=== PATIENT | female | born 1965 | race Caucasian/White ===

== ENCOUNTER → 2016-07-03 | Outpatient (CLI) | payer BC ==
--- NOTE | 2016-07-06 07:34 | XR ---
EXAMINATION TYPE: XR cervical spine comp DATE OF EXAM: 07/03/2016 4:45 PM CLINICAL HISTORY: pain COMPARISON: NONE TECHNIQUE: Frontal, lateral, oblique, swimmers, and open mouth view of the cervical spine are obtaine d. FINDINGS: The cervical spine is visualized in its entirety from C1 thru the top of T1 level. It is s atisfactory in alignment without evidence of acute fracture or dislocation. The pre-vertebral soft t issue appears within normal limits. There is moderate degenerative disc space narrowing at C6-7 with the ventral and dorsal spondylosis. Mild bilateral foraminal encroachment is noted at this level. The C1-C2 articulation is unremarkable on the open mouth view. IMPRESSION: No acute fracture or dislocation is seen in the cervical spine.ICD 10 NO FRACTURE, INITI AL EVALUATION
== END | disposition home or self-care (01) ==
LOC: RADXRYALE 16:31
PROVIDERS: ATTEND Physician Assistant Medical
DX: M54.12 Radiculopathy, cervical region (principal)
CPT/HCPCS: 72050

== ENCOUNTER → 2020-04-02 | Outpatient (CLI) | payer BC ==
--- NOTE | 2020-04-03 07:12 | XR ---
Chest x-ray and left RIBS HISTORY: Chest pain, localized swelling Frontal view of the chest and 4 views of the left ribs No comparisons There is a spinal curvature noted centered at the upper lumbar spine. Bone mineralization is maintain ed. No evident displaced rib fracture. Mild prominence of the ascending aorta may be at least in part due to technique. There is no evident pneumothorax or pleural effusion. No airspace disease. Heart s ize is normal. IMPRESSION: No acute abnormality. Prominence of the ascending aorta is noted as described.
== END | disposition home or self-care (01) ==
LOC: RADXRYALE 16:14
PROVIDERS: ATTEND Family Medicine
DX: R07.89 Other chest pain (principal); R22.2 Localized swelling, mass and lump, trunk

== ENCOUNTER → 2020-08-28 | Day surgery (SDC) | payer BC ==
[2020-08-26 10:21] VITALS: BMI 21.7
[~2020-08-28] MED LIST: DEXAMETHASONE SOD PHOSPHATE 10 MG/ML 1 ML VIAL ONE; DEXAMETHASONE SOD PHOSPHATE 4 MG/ML 1 ML VIAL IV PRN; FAMOTIDINE 20 MG/2 ML VIAL IV PRN; GLYCOPYRROLATE 0.2 MG/ML 2 ML VIAL ONE; LACTATED RINGERS 1,000 ML IV ONE; LIDOCAINE 1% INJ 10MG/ML (20 ML MDV) ONE; MIDAZOLAM 2 MG/2 ML VIAL ONE; NEOSTIGMINE 1 MG/ML 10 ML VIAL ONE; ONDANSETRON 4 MG/2 ML VIAL IVP PRN; PROPOFOL 10 MG/ML 20 ML VIAL IV ONE; Pre Op ABX Message 1 EACH MISC MISCELLANE ONE; ROCURONIUM 10 MG/ML (5 ML VIAL) IV ONE; SUCCINYLCHOLINE CHLORIDE 100 MG/5 ML SYR IV ONE; fentaNYL (PF) 50 MCG/ML 2 ML AMP ONE
--- NOTE | 2020-08-28 09:53 | P.OP ---
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 Postoperative Diagnosis: Same Procedure(s) Performed: Microlaryngoscopy with biopsy bilateral true vocal cords Anesthesia: LILIA Surgeon: Juanjo Gentile Estimated Blood Loss (ml): 1 Pathology: other (Bilateral true vocal biopsies) Condition: stable Disposition: PACU Indications for Procedure: This is a 55-year-old white female with over 2 months of chronic hoarseness a long history of smoking with notable bilateral tubal leukoplakia flexible laryngoscopy Operative Findings: Bilateral mild mid true vocal cord leukoplakia with diffuse gross pachydermia bilateral vocal cords Description of Procedure: The patient was brought in the operative suite and placed in a supine position. The patient underwent induction of general anesthesia with oral endotracheal intubation without difficulty. The patient was prepped and draped in usual aseptic fashion. Tooth guard was placed and direct laryngoscopy was performed with systematic evaluation of the base of tongue vallecula both piriform sinuses post cricoid area and endolarynx. With the larynx in good visualization the laryngoscope was placed in suspension and the Zeiss microscope brought into position. The vocal cords were well visualized. There was minimal movement true vocal cord leukoplakia bilaterally which was excised with cup forceps and microdebrider dissection technique leaving the lamina propria intact. No further leukoplakia was noted. The stasis was gained spontaneously. The patient was suctioned in the larynx. Laryngoscope and tooth guard were removed The patient was allowed to emerge from general anesthesia having tolerated well was extubated in the operative suite and transferred to postop recovery area in satisfactory condition.
[2020-08-28 10:15] VITALS: TEMP 97.8
[2020-08-28 10:36] VITALS: RESP 16
[2020-08-28 11:11] VITALS: BP 134/78; PULSE 70
== END | disposition home or self-care (01) ==
LOC: OR 08:00
PROVIDERS: ATTEND Otolaryngology
DX: J38.3 Other diseases of vocal cords (principal); I10 Essential (primary) hypertension; Z96.60 Presence of unspecified orthopedic joint implant; F17.200 Nicotine dependence, unspecified, uncomplicated; Z79.899 Other long term (current) drug therapy; Z88.0 Allergy status to penicillin
CPT/HCPCS: 88305; 31536; J2250; J1100 ×2; J2710; J2405; J2001; J3010; J0330; J2704

== ENCOUNTER → 2021-05-15 | Outpatient (CLI) | payer BC ==
--- NOTE | 2021-05-19 12:22 | MM ---
Reason for exam: screening (asymptomatic). Last mammogram was performed 5 years and 9 months ago. History: Patient is nulliparous. Physical Findings: A clinical breast exam by your physician is recommended on an annual basis and results should be correlated with mammographic findings. MG Screening Mammo w CAD Bilateral CC and MLO view(s) were taken. Prior study comparison: August 05, 2015, bilateral MG screening mammo w CAD. December 15, 2013, bilateral MG screening mammo w CAD. The breast tissue is heterogeneously dense. This may lower the sensitivity of mammography. There are benign appearing round calcifications in the right breast. There is no discrete abnormality. ASSESSMENT: Benign, BI-RAD 2 RECOMMENDATION: Routine screening mammogram of both breasts in 1 year.
== END | disposition home or self-care (01) ==
LOC: RADMAMWWP 11:35
PROVIDERS: ATTEND Family Medicine
DX: Z12.31 Encounter for screening mammogram for malignant neoplasm of breast (principal)
CPT/HCPCS: 77067

== ENCOUNTER → 2022-08-05 | Outpatient (CLI) | payer BC ==
--- NOTE | 2022-08-05 08:47 | MM ---
Reason for Exam: Clinical finding. Last mammogram was performed 1 year(s) and 3 month(s) ago. Patient History: Menarche at age 14. Patient has no children. Postmenopausal. Risk Values: Svitlana 5 year model risk: 1.3%. NCI Lifetime model risk: 9.1%. Tissue Density: The breast tissue is heterogeneously dense. This may lower the sensitivity of mammography. Findings: Analyzed By CAD. Benign-appearing bilateral axillary lymph nodes are present. No suspicious new mass or worrisome group of microcalcification in either breast. Overall Assessment: Incomplete: need additional imaging evaluation, BI-RAD 0 Management: Diagnostic Breast Ultrasound of the right breast. Targeted ultrasound evaluation due to localized pain. Electronically signed and approved by: Ethan Stephen M.D.
--- NOTE | 2022-08-05 09:29 | USB ---
Reason for Exam: Clinical finding. Patient History: Menarche at age 14. Patient has no children. Postmenopausal. Risk Values: Svitlana 5 year model risk: 1.3%. NCI Lifetime model risk: 9.1%. Technique: Method: Targeted. Prior Study Comparison: 12/15/2013 Bilateral Screening Mammogram, [facility]. 08/05/2015 Bilateral Screening Mammogram, [facility]. 05/15/2021 Bilateral Screening Mammogram, [facility]. Findings: The upper outer quadrant of the right breast, the axilla of the right breast and the retroareolar of the right breast were scanned. Targeted ultrasound shows no worrisome solid or cystic masses or fluid collection. Overall Assessment: Negative, BI-RAD 1 Management: Screening Mammogram of both breasts in 1 year. Return to routine follow-up. Manage patient's symptoms clinically. Results were given to the patient verbally at the time of exam. Electronically signed and approved by: Ethan Stephen M.D.
== END | disposition home or self-care (01) ==
LOC: RADMAMWWP 08:19
PROVIDERS: ATTEND Family Medicine
DX: N63.10 Unspecified lump in the right breast, unspecified quadrant (principal); Z78.0 Asymptomatic menopausal state
CPT/HCPCS: 77062; 77066

== ENCOUNTER → 2023-10-11 | Outpatient (CLI) | payer BC ==
--- NOTE | 2023-10-12 09:10 | MM ---
Reason for Exam: Screening (asymptomatic). Last mammogram was performed 1 year(s) and 2 month(s) ago. Patient History: Menarche at age 14. Patient has no children. Postmenopausal. Risk Values: Svitlana 5 year model risk: 1.4%. NCI Lifetime model risk: 8.9%. Prior Study Comparison: 08/05/2015 Bilateral Screening Mammogram, [facility]. 05/15/2021 Bilateral Screening Mammogram, [facility]. 08/05/2022 Bilateral MG 3D diag mammo w/cad COREY, [facility]. Tissue Density: The breasts are heterogeneously dense, which may obscure small masses. Findings: Analyzed By CAD. There is no suspicious group of microcalcifications or new suspicious mass in either breast. Overall Assessment: Benign, BI-RAD 2 Management: Screening Mammogram of both breasts in 1 year. . Patient should continue monthly self-breast exams. A clinical breast exam by your physician is recommended on an annual basis. This exam should not preclude additional follow-up of suspicious palpable abnormalities. Note on Svitlana scores and lifetime risk: 1. A Svitlana score greater than 3% is considered moderate risk. If this is the case, consider specialist referral to assess eligibility for a risk reducing agent. 2. If overall lifetime risk for the development of breast cancer is 20% or higher, the patient may qualify for future screening with alternating mammogram and breast MRI. Electronically signed and approved by: Rosendo Clemente M.D. Radiologis
== END | disposition home or self-care (01) ==
LOC: RADMAMWWP 10:35
PROVIDERS: ATTEND Family Medicine
DX: Z12.31 Encounter for screening mammogram for malignant neoplasm of breast (principal); Z78.0 Asymptomatic menopausal state
CPT/HCPCS: 77063; 77067

== ENCOUNTER 2024-06-18 12:12 | Emergency (ER) | payer BC ==
--- NOTE | 2024-06-18 12:28 | ED ---
Upper Extremity HPI - General Chief Complaint: Extremity Injury, Upper Stated Complaint: right arm pain Time Seen by Provider: 06/18/24 12:19 Source: patient Mode of arrival: ambulatory Limitations: no limitations - History of Present Illness Initial Comments: This patient is a 58-year-old woman who presents to have evaluation of left wrist injury. The patient states that she had slipped and fallen while walking on the snow. She landed on outstretched hand. She noticed pain and swelling. She has not had previous injury or surgery. Patient is right-handed. MD Complaint: Injury to:: left, wrist Onset/Timin -: hour(s) Other Extremity Injury: Wrist: Right Other Injuries: none Handedness: right Place: outdoors Improves With: medication Worsens With: movement of extremity Context: fall Associated Symptoms: denies other symptoms Treatments Prior to Arrival: NSAIDS - Related Data Home Medications Medication Instructions Recorded Confirmed lisinopriL [Prinivil] 20 mg PO BID 08/26/20 06/27/24 Acetaminophen-Codeine 300-30mg 1 - 2 tab PO Q6H PRN 06/22/24 06/27/24 [Tylenol w/codeine #3] Ascorbic Acid [Vitamin C] 500 mg PO DAILY 06/22/24 06/27/24 Atorvastatin [Lipitor] 10 mg PO HS 06/22/24 06/27/24 Cholecalciferol [Vitamin D3 (25 50 mcg PO DAILY 06/22/24 06/27/24 Mcg = 1000 Iu)] Escitalopram [Lexapro] 10 mg PO QAM 06/22/24 06/27/24 [place]-3/Dha/Epa/Fish Oil [Fish Oil 1 each PO DAILY 06/22/24 06/27/24 1,000 mg Softgel] hydroCHLOROthiazide 25 mg PO QAM 06/22/24 06/27/24 Previous Rx's Medication Instructions Recorded Acetaminophen-Codeine 300-30mg 1 tab PO Q8H PRN #21 tablet 06/27/24 [Tylenol w/codeine #3] Allergies Allergy/AdvReac Type Severity Reaction Status Date / Time Penicillins Allergy Rash/Hives Verified 06/27/24 08:50 morphine AdvReac Nausea & Verified 06/27/24 08:50 Vomiting Review of Systems ROS Statement: Those systems with pertinent positive or pertinent negative responses have been documented in the HPI. ROS Other: All systems not noted in ROS Statement are negative. Constitutional: Denies: weakness Cardiovascular: Denies: syncope Gastrointestinal: Denies: abdominal pain Musculoskeletal: Reports: as per HPI, joint swelling, arthralgia. Denies: back pain Skin: Denies: lesions Neurological: Denies: headache Past Medical History Past Medical History: Hypertension Additional Past Medical History / Comment(s): Minor heart murmur. "Was told I have liver/kidney problems in Mar 2020, but has had no follow up on it." "Found a tick on my head 2 weeks ago, on Doxycycline foir it." History of Any Multi-Drug Resistant Organisms: None Reported Past Surgical History: Orthopedic Surgery Additional Past Surgical History / Comment(s): Right knee surgery. Past Anesthesia/Blood Transfusion Reactions: No Reported Reaction Past Psychological History: Anxiety Smoking Status: Current every day smoker Past Alcohol Use History: None Reported Past Drug Use History: None Reported - Past Family History Father Family Medical History: Cancer, Deep Vein Thrombosis (DVT) Additional Family Medical History / Comment(s): Throat cancer. Mother Family Medical History: Cancer Additional Family Medical History / Comment(s): Lung cancer. General Exam Limitations: no limitations General appearance: alert, in no apparent distress Head exam: Present: atraumatic, normocephalic Eye exam: Present: normal appearance Neck exam: Present: normal inspection, full ROM. Absent: tenderness Respiratory exam: Absent: chest wall tenderness Cardiovascular Exam: Present: other (Radial pulse is strong and symmetric. Normal capillary refill.) Extremities exam: Present: tenderness, normal capillary refill. Absent: full ROM Left Shoulder Exam: Present: normal inspection, full ROM. Absent: tenderness, swelling Upper Arm exam: Present: normal inspection, full ROM. Absent: tenderness, swelling Elbow exam: Present: normal inspection, full ROM. Absent: tenderness, swelling, abrasion Forearm Wrist exam: Present: tenderness, swelling, ecchymosis, deformity. Absent: normal inspection, full ROM, abrasion, tenderness over anatomical snuff box Neuro motor exam: Present: thumb opposition intact, thumb IP flexion intact, thumb adduction intact, fingers 2-5 abduction intact Neurosensory exam: Present: radial nerve intact, ulnar nerve intact, median nerve intact Vascular: Present: normal capillary refill. Absent: vascular compromise Back exam: Absent: vertebral tenderness Neurological exam: Present: alert. Absent: motor sensory deficit Skin exam: Present: warm, dry, intact, normal color. Absent: rash Course Vital Signs 06/18/24 06/18/24 12:14 13:21 Temperature 97.8 F 98.1 F Pulse Rate 64 61 Respiratory 16 18 Rate Blood Pressure 154/82 125/76 O2 Sat by Pulse 96 97 Oximetry Procedures - Orthopedic Splinting/Casting Injury #1 Side: left Upper Extremity Injury Location: wrist Upper Extremity Immobilizer: sugar tong splint Medical Decision Making - Medical Decision Making The patient had x-ray of the wrist that I interpreted as showing acute Colles fracture Was pt. sent in by a medical professional or institution (, PA, AUTOMOTIVE PROFESSIONAL, urgent care, hospital, or alf...) When possible be specific @ -[No] Did you speak to anyone other than the patient for history (EMS, parent, family, police, friend...)? What history was obtained from this source @ -[No] Did you review nursing and triage notes (agree or disagree)? Why? @ -[I reviewed and agree with nursing and triage notes] Were old charts reviewed (outside hosp., previous admission, EMS record, old EKG, old radiological studies, urgent care reports/EKG's, alf records)? Report findings @ -[No old charts were reviewed] Differential Diagnosis (chest pain, altered mental status, abdominal pain women, abdominal pain men, vaginal bleeding, weakness, fever, dyspnea, syncope, headache, dizziness, GI bleed, back pain, seizure, CVA, palpatations, mental health, musculoskeletal)? @ -[not applicable] EKG interpreted by me (3pts min.). @ -[As above] X-rays interpreted by me (1pt min.). @ -[I interpreted as above CT interpreted by me (1pt min.). @ -[None done] U/S interpreted by me (1pt. min.). @ -[None done] What testing was considered but not performed or refused? (CT, X-rays, U/S, labs)? Why? @ -[None] What meds were considered but not given or refused? Why? @ -[None] Did you discuss the management of the patient with other professionals (kim hicks i.e. Dr., PA, AUTOMOTIVE PROFESSIONAL, lab, RT, psych nurse, psychiatric social worker, reed press feeder, teacher, weapons electrical engineering officer, rehabilitation caseworker)? Give summary @ -[No] Was smoking cessation discussed for >3mins.? @ -[No] Was critical care preformed (if so, how long)? @ -[No] Were there social determinants of health that impacted care today? How? (Homelessness, low income, unemployed, alcoholism, drug addiction, transportation, low edu. Level, literacy, decrease access to med. care, fpc, rehab)? @ -[No] Was there de-escalation of care discussed even if they declined (Discuss DNR or withdrawal of care, Hospice)? DNR status @ -[No] What co-morbidities impacted this encounter? (DM, HTN, Smoking, COPD, CAD, Cancer, CVA, ARF, Chemo, Hep., AIDS, mental health diagnosis, sleep apnea, morbid obesity)? @ -[None] Was patient admitted / discharged? Hospital course, mention meds given and route, prescriptions, significant lab abnormalities, going to OR and other pertinent info. @ -[Patient is 58-year-old woman having ground-level fall with Colles' fracture. There is no neurovascular dysfunction. The patient placed in sugar- tong splint. Appropriate splint care and follow-up as well as return parameters are discussed. Undiagnosed new problem with uncertain prognosis? @ -[No] Drug Therapy requiring intensive monitoring for toxicity (Heparin, Nitro, Insulin, Cardizem)? @ -[No] Were any procedures done? @ -[I performs splinting to stabilize the patient's fracture Diagnosis/symptom? @ -[Acute Colles' fracture Acute, or Chronic, or Acute on Chronic? @ -[Acute Uncomplicated (without systemic symptoms) or Complicated (systemic symptoms)? @ -[Uncomplicated Side effects of treatment? @ -[No] Exacerbation, Progression, or Severe Exacerbation? @ -[No] Poses a threat to life or bodily function? How? (Chest pain, [place], [place], pneumonia, PE, COPD, DKA, ARF, appy, cholecystitis, CVA, Diverticulitis, Homicidal, Suicidal, threat to staff... and all critical care pts) @ -[This does require orthopedic follow-up to prevent loss of function of the wrist All treatments are based on ideal body weight as in ED triage Disposition Clinical Impression: Colles' fracture Disposition: HOME SELF-CARE Condition: Good Instructions (If sedation given, give patient instructions): Wrist Fracture in Adults (ED) Is patient prescribed a controlled substance at d/c from ED?: No Referrals: Omar Kraus DO [Primary Care Provider] - 1-2 days Gabriel Dotson DO [Doctor of Osteopathic Medicine] - 1-2 days
--- NOTE | 2024-06-18 12:47 | XR ---
EXAMINATION TYPE: XR wrist complete LT DATE OF EXAM: 06/18/2024 12:42 PM COMPARISON: None CLINICAL INDICATION: Female, 58 years old with history of fall injury; PHH, pain TECHNIQUE: XR wrist complete LT; 2 views submitted FINDINGS/IMPRESSION: Acute intra-articular distal radius fracture with dorsal angulation. Associated soft tissue swelling. No additional fractures visualized. [facility], , 06/18/2024 12:44 PM
[2024-06-18 13:23] VITALS: BP 125/76; PULSE 61; RESP 18; TEMP 98.1
== END 2024-06-18 13:23 | disposition home or self-care (01) ==
LOC: EC 12:12
DX: S52.531A Colles' fracture of right radius, initial encounter for closed fracture (principal); F17.200 Nicotine dependence, unspecified, uncomplicated; Z88.0 Allergy status to penicillin; Z88.5 Allergy status to narcotic agent; W00.0XXA Fall on same level due to ice and snow, initial encounter; Y93.01 Activity, walking, marching and hiking
CPT/HCPCS: 29105; 99283

== ENCOUNTER 2024-06-27 08:21 | Day surgery (SDC) | payer BC ==
[2024-06-22 10:34] VITALS: BMI 24.7
--- NOTE | 2024-06-26 08:13 | P.HPOR ---
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 She sustained an injury to the left wrist. Initially she was seen in the emergency room and placed in a splint. She denies previous injury. Review of Systems Per HPI Past Medical History Past Medical History: Hyperlipidemia, Hypertension Additional Past Medical History / Comment(s): Minor heart murmur. "Hx liver/kidney problems in Mar 2020, due to heavy alcohol use, quit drinking 4 yrs ago and now resolved." History of Any Multi-Drug Resistant Organisms: None Reported Past Surgical History: Orthopedic Surgery Additional Past Surgical History / Comment(s): Right knee surgery. Past Anesthesia/Blood Transfusion Reactions: No Reported Reaction Smoking Status: Current every day smoker - Past Family History Father Family Medical History: Cancer, Deep Vein Thrombosis (DVT) Additional Family Medical History / Comment(s): Throat and lung cancer. Mother Family Medical History: Cancer Additional Family Medical History / Comment(s): Liver failure. Brother(s) Family Medical History: Deep Vein Thrombosis (DVT) Medications and Allergies Home Medications Medication Instructions Recorded Confirmed Type lisinopriL [Prinivil] 20 mg PO BID 08/26/20 06/22/24 History Acetaminophen-Codeine 300-30mg 1 - 2 tab PO Q6H PRN 06/22/24 06/22/24 History [Tylenol w/codeine #3] Ascorbic Acid [Vitamin C] 500 mg PO DAILY 06/22/24 06/22/24 History Atorvastatin [Lipitor] 10 mg PO HS 06/22/24 06/22/24 History Cholecalciferol [Vitamin D3 (25 50 mcg PO DAILY 06/22/24 06/22/24 History Mcg = 1000 Iu)] Escitalopram [Lexapro] 10 mg PO QAM 06/22/24 06/22/24 History [place]-3/Dha/Epa/Fish Oil [Fish Oil 1 each PO DAILY 06/22/24 06/22/24 History 1,000 mg Softgel] hydroCHLOROthiazide 25 mg PO QAM 06/22/24 06/22/24 History Allergies Allergy/AdvReac Type Severity Reaction Status Date / Time Penicillins Allergy Rash/Hives Verified 06/22/24 10:01 morphine AdvReac Nausea & Verified 06/22/24 10:01 Vomiting Physical Examination - Wrist & Hand left Location of pain: dorsal wrist, volar wrist Results The patient is a well-developed well-nourished female approximately 5 foot 6, 155 pounds of mesomorphic habitus. HEENT exam is nonfocal, neck is supple. She is nontender about the left shoulder. On the left upper extremity she is in a sugar-tong splint. She is tender over the distal radius. Moderate swelling is noted. Light touch is grossly intact in the left digits. She has limited digital range of motion. She does fire the EPL. - Diagnostic results Wrist/Hand x-ray: image reviewed (X-rays of the left wrist obtained the office show an intra-articular distal radius fracture with significant volar and dorsal comminution along with moderate dorsal angulation and loss of radial inclination.) Assessment and Plan Assessment: Left intra-articular distal radius fracturedisplaced Plan: I talked to the patient at length regarding her condition at this point I recommend proceeding with surgical intervention. We will plan to proceed with open reduction and internal fixation of the left intra-articular distal radius fracture. Potentially we will perform as an outpatient procedure. Risks and benefits were discussed at length in layman's terms.
[~2024-06-27 08:21] MED LIST changes: -DEXAMETHASONE SOD PHOSPHATE 10 MG/ML 1 ML VIAL ONE; -DEXAMETHASONE SOD PHOSPHATE 4 MG/ML 1 ML VIAL IV PRN; -FAMOTIDINE 20 MG/2 ML VIAL IV PRN; -GLYCOPYRROLATE 0.2 MG/ML 2 ML VIAL ONE; -LACTATED RINGERS 1,000 ML IV ONE; -LIDOCAINE 1% INJ 10MG/ML (20 ML MDV) ONE; -MIDAZOLAM 2 MG/2 ML VIAL ONE; -NEOSTIGMINE 1 MG/ML 10 ML VIAL ONE; -ONDANSETRON 4 MG/2 ML VIAL IVP PRN; -PROPOFOL 10 MG/ML 20 ML VIAL IV ONE; -Pre Op ABX Message 1 EACH MISC MISCELLANE ONE; -ROCURONIUM 10 MG/ML (5 ML VIAL) IV ONE; -SUCCINYLCHOLINE CHLORIDE 100 MG/5 ML SYR IV ONE; +fentaNYL (PF) 50 MCG/ML 2 ML AMP IV PRN; -fentaNYL (PF) 50 MCG/ML 2 ML AMP ONE
[2024-06-27] MEDS: IV FLUID CONTINUATION 1,000 ML IV ONE (08:38)
[2024-06-27] MEDS: DEXAMETHASONE SOD PHOSPHATE 4 MG/ML 1 ML VIAL IV ONE (09:06)
[2024-06-27] MEDS: LACTATED RINGERS 1,000 ML IV SCH (09:06)
[2024-06-27] MEDS: ONDANSETRON 4 MG/2 ML VIAL IVP ONE (09:06)
[2024-06-27] MEDS: fentaNYL (PF) 50 MCG/ML 2 ML AMP IVP STA (09:31)
[2024-06-27] MEDS: MIDAZOLAM 2 MG/2 ML VIAL IV ONE (09:31)
--- NOTE | 2024-06-27 09:53 | P.ANPRN ---
Procedure Note - Anesthesia - Nerve Block Performed Left Supraclavicular Single Time Out Performed: Yes Date of Procedure: 06/27/24 Procedure Start Time: : Procedure Stop Time: :37 Location of Patient: PreOp Indication: Acute Post-Operative Pain, Requested by Surgeon Sedation Type: Sedate with meaningful contact maintained Preparation: Sterile Prep Position: Supine Needle Types: Pajunk Ultrasound used to visualize needle placement: Yes Ultrasound used to observe medication spread: Yes Injectate: 0.5% Ropivacaine (see comment for volume) (30 ml + 4 mg Dexamethasone) Blood Aspirated: No Pain Paresthesia on Injection Noted: No Resistance on Injection: Normal Image Stored and Saved: Yes Events: Uneventful and Well Tolerated
[2024-06-27] MEDS ORDERED: DEXAMETHASONE SOD PHOSPHATE 4 MG/ML 1 ML VIAL ONE (10:33)
[2024-06-27] MEDS ORDERED: ROPIVACAINE 5 MG/ML 30 ML VIAL ONE (10:33)
[2024-06-27] MEDS ORDERED: LIDOCAINE 1% INJ 10MG/ML (20 ML MDV) ONE (10:33)
[2024-06-27] MEDS ORDERED: PROPOFOL 10 MG/ML 20 ML VIAL IV ONE (10:33)
[2024-06-27 12:12] VITALS: TEMP 96.8
--- NOTE | 2024-06-27 12:13 | P.OP ---
Date of Procedure: 06/27/24 Preoperative Diagnosis: Displaced/angulated/comminuted left intra-articular distal radius fracture Postoperative Diagnosis: Same Procedure(s) Performed: Open reduction and internal fixation left intra-articular distal radius fracture Implants: Synthes narrow 3-hole volar distal radial plate Anesthesia: peterson RODRIGUES Surgeon: Lee Hardy Community Services Manager #1: Jh Soliman Estimated Blood Loss (ml): 5 Pathology: none sent Condition: stable Disposition: PACU Indications for Procedure: The patient is a 58-year-old female who presents with left wrist pain after a recent fall. Upon evaluation she was noted to have a displaced/angulated left intra-articular distal radius fracture. A discussion of the risks and benefits of operative intervention was made with the patient. She opted to proceed with surgery. Operative risks to include infection, neurovascular injury, development of blood clots, possible development of nonunion, possible development of malunion, possible hardware irritation and need for subsequent procedures was discussed. Informed consent was obtained. Operative Findings: As below Description of Procedure: The patient was brought the operating room, and after induction of general anesthesia the left upper extremity was prepped and draped in normal fashion. The tourniquet was inflated to 250 mmHg. A 6 cm incision was then made along the volar aspect of the left wrist centered over the flexor carpi radialis. Skin was incised sharply. Subcutaneous tissues were divided bluntly. Electrocautery was used for hemostasis. The FCR sheath was opened. The tendon was then mobilized ulnarly and the radial artery radially. A blunt retractor was utilized. The underlying fascia was opened. The contents of the carpal canal were then bluntly dissected ulnarly. The pronator quadratus was elevated subperiosteally off the distal radius. The fracture site was identified and cleaned of clot and debris. This is then reduced with traction and manipul ation. A 3-hole narrow volar plate was then provisionally placed with an olive wire. This was verified with fluoroscopy. 2.7 mm cortical screws were placed proximally in the plate with good purchase. Distally, smooth locking pins were of the appropriate length were placed with the aid of fluoroscopy. The proximal and distal row were filled. Final fluoroscopic views including AP, PA, and elev ated lateral showed adequate reduction of this complicated intra-articular distal radius fracture with evangelical of volar tilt and radial tilt. The articular surface appeared to be well aligned with minimal step-off. The wound was irrigated normal saline. The pronator quadratus was repaired with simple 3- 0 Vicryl suture. The subcutaneous tissues were approximated with simple 3-0 Vicryl sutures. The skin was reapproximated with 4-0 subcuticular Prolene suture. Steri-Strips were applied. A sterile dressing was applied in addition to a volar splint. The tourniquet was deflated less than 1 hour total tourniquet time. The patient was awoken from general anesthesia and transferred recovery room in good condition. Blood loss is estimated 5 cc. No complications were incurred. Sponge and needle counts were correct at the end the case. Jh HANSEN assisted during the major components of the case to include positioning, exposure, reduction, implantation, and closure.
--- NOTE | 2024-06-27 12:16 | FL ---
Fluoroscopy INDICATION: Pain FINDINGS: Fluoroscopy time: 19.3 seconds. Total dose area product (DAP) in uGy*m?, mGy*cm? (or similar): 0.2011 Images obtained: 0. IMPRESSION: 1. Documentation of fluoroscopy. [facility], , 06/27/2024 12:13 PM
[2024-06-27 12:48] VITALS: RESP 16
[2024-06-27 13:03] VITALS: BP 124/68; PULSE 73
--- NOTE | 2024-06-27 13:19 | XR ---
Fluoroscopy INDICATION: Pain FINDINGS: Fluoroscopy time: 19.3 seconds. Total dose area product (DAP) in uGy*m?, mGy*cm? (or similar): 0.2011 Images obtained: 4. Images document open reduction internal fixation distal radial fracture IMPRESSION: 1. Fluoroscopy documenting the procedure. [facility] , 06/27/2024 1:17 PM
== END 2024-06-27 13:26 | disposition home or self-care (01) ==
LOC: OR 08:21
PROVIDERS: ATTEND Orthopaedic Surgery
DX: S52.572A Other intraarticular fracture of lower end of left radius, initial encounter for closed fracture (principal); I10 Essential (primary) hypertension; G89.18 Other acute postprocedural pain; E78.5 Hyperlipidemia, unspecified; F41.9 Anxiety disorder, unspecified; F17.210 Nicotine dependence, cigarettes, uncomplicated; F10.90 Alcohol use, unspecified, uncomplicated; Z88.0 Allergy status to penicillin; Z88.5 Allergy status to narcotic agent; Z79.899 Other long term (current) drug therapy; W00.0XXA Fall on same level due to ice and snow, initial encounter
CPT/HCPCS: 64415; 73090; 25607; C1713; J2250; J1100; J0690; J2405; J2003; J3010; J2795; J2704

== ENCOUNTER → 2024-10-12 | Outpatient (CLI) | payer BC ==
--- NOTE | 2024-10-12 10:14 | MM ---
Reason for Exam: Clinical finding. Last screening mammogram was performed 12 month(s) ago. Patient History: Menarche at age 14. Patient has no children. Postmenopausal. Risk Values: Svitlana 5 year model risk: 1.4%. NCI Lifetime model risk: 8.7%. Tissue Density: The breasts are heterogeneously dense, which may obscure small masses. Findings: Analyzed By CAD. No suspicious calcifications. Stable appearing subcentimeter density in the posterior margin breast unchanged from prior exam. Stable lymph node in the left axilla. Overall Assessment: Incomplete: need additional imaging evaluation, BI-RAD 0 Management: Diagnostic Breast Ultrasound of the left breast. . Results were given to the patient verbally at the time of exam. Patient should continue monthly self-breast exams. A clinical breast exam by your physician is recommended on an annual basis. This exam should not preclude additional follow-up of suspicious palpable abnormalities. Note on Svitlana scores and lifetime risk: 1. A Svitlana score greater than 3% is considered moderate risk. If this is the case, consider specialist referral to assess eligibility for a risk reducing agent. 2. If overall lifetime risk for the development of breast cancer is 20% or higher, the patient may qualify for future screening with alternating mammogram and breast MRI. [facility], , 10/12/2024 10:12 AM. Electronically signed and approved by: Vikram Romano M.D. Radiologis
--- NOTE | 2024-10-12 10:35 | USB ---
Reason for Exam: Clinical finding. Patient History: Menarche at age 14. Patient has no children. Postmenopausal. Risk Values: Svitlana 5 year model risk: 1.4%. NCI Lifetime model risk: 8.7%. Technique: Method: Whole Breast Handheld. Doppler: Color. Patient Position: Lateral Decubitus. Prior Study Comparison: 05/15/2021 Bilateral Screening Mammogram, [facility]. 08/05/2022 Bilateral MG 3D diag mammo w/cad C[facility], [facility]. 10/11/2023 Bilateral MG 3D screening mammo w/cad, [facility]. Findings: The whole breast of the left breast, the axilla of the left breast and the retroareolar of the left breast were scanned. A complete US of all four quadrants of the breast and retro-areolar region were reviewed. There is a 1.2 x 1 cm cyst with some internal debris. Most likely related to complicated cyst. Overall Assessment: Probably benign, BI-RAD 3 Management: Diagnostic Breast Ultrasound of the left breast in 3 months. A clinical breast exam by your physician is recommended on an annual basis and results should be correlated with mammographic findings. This exam should not preclude additional follow-up of suspicious palpable abnormalities. Results were given to the patient verbally at the time of exam. [facility], , 10/12/2024 10:32 AM. Electronically signed and approved by: Vikram Romano M.D. Radiologis
== END | disposition home or self-care (01) ==
LOC: RADMAMWWP 09:40
PROVIDERS: ATTEND Family Medicine
DX: Z12.31 Encounter for screening mammogram for malignant neoplasm of breast (principal); R92.333 Mammographic heterogeneous density, bilateral breasts; Z78.0 Asymptomatic menopausal state; N60.02 Solitary cyst of left breast
CPT/HCPCS: 77062; 77066